=== PATIENT | female | born 1970 | race African-American/Black ===

== ENCOUNTER 2017-12-24 05:47 | Inpatient (IN) ==
[2017-12-23 11:33] LABS: Basophils % 0.2 % (0.0-0.8); Eosinophils # 0.1 10*3/uL (0.0-0.87); Hematocrit 39.1 VOL% (35.7-47.0); Hemoglobin 13.2 GM/DL (12.0-16.0); Immature Granulocytes % 0.4 %; Immature Granulocytes Absolute 0.04 #; Lymphocytes # 2.6 10*3/uL (1.4-4.0); Lymphocytes % 23.8 % (21.3-54.2); Mean Corpuscular HGB Conc 33.8 GM/DL (32-36); Mean Corpuscular Hemoglobin 32 PG (27-34); Mean Corpuscular Volume 96.1 FL (87-102); Mean Platelet Volume 11.2 FL (9.6-12.0); Monocytes # 0.6 10*3/uL (0.11-0.8); Monocytes % 5.5 % (1.7-12.7); Neutrophils # 7.5 10*3/uL (1.4-7.4); Neutrophils % 69.1 % (38.7-73.9); Platelet Count 267 T/CUMM (130-400); Red Blood Count 4.07 MC/CUMM (3.8-5.5); White Blood Count 10.8 T/CUMM (4-12)
[2017-12-23 11:42] LABS: PT Patient Result 10.4 SECS
[2017-12-23 12:49] LABS: Calcium 9.4 MG/DL (8.5-10.1)
[2017-12-23 12:50] LABS: Albumin 3.9 G/DL (3.4-5.0); Bilirubin,Total 0.7 MG/DL (0.2-1.0); Osmolality,Calculated 268.8 MOS/KG (273-304); Potassium 3.6 MMOL/L (3.5-5.1); Total Protein 7.6 G/DL (6.4-8.3)
[2017-12-24] MEDS ORDERED: ceFAZolin 2,000 MG in PREMIX 1 EACH IV ONE (06:30)
[2017-12-24] MEDS ORDERED: FAMOTIDINE 20 MG TABLET PO ONE (06:53)
[2017-12-24] MEDS ORDERED: DIAZEPAM 5 MG TABLET PO ONE (06:53)
[2017-12-24] MEDS ORDERED: LIDOCAINE 1%/EPI INJ 20 ML VIAL ONE (08:43)
[2017-12-24] MEDS ORDERED: TISSUE ADHESIVE 1 EACH APPLICATOR TOP ONE (08:43)
[2017-12-24] MEDS ORDERED: FAMOTIDINE 20 MG TABLET ONE (08:49)
[2017-12-24] MEDS ORDERED: DIAZEPAM 5 MG TABLET ONE (08:49)
[2017-12-24] MEDS ORDERED: LACTATED RINGERS 1,000 ML IV SCH (09:00)
[2017-12-24] MEDS ORDERED: ISOSULFAN BLUE 5 ML VIAL SUBCUT ONE (09:13)
[2017-12-24] MEDS ORDERED: ONDANSETRON 4 MG/2 ML VIAL IV PRN (11:42)
[2017-12-24] MEDS ORDERED: ACETAMINOPHEN 325 MG TABLET PO PRN (11:42)
[2017-12-24] MEDS ORDERED: HYDROmorphone 2 MG/1 ML VIAL IV PRN (11:42)
[2017-12-24] MEDS ORDERED: PSEUDOEPHEDRINE PO PRN (11:50)
[2017-12-24] MEDS ORDERED: GUAIFENESIN PO PRN (11:50)
[2017-12-24] MEDS ORDERED: SEVOFLURANE 1 UNIT/15 MINUTE INH ONE (12:02)
[2017-12-24] MEDS ORDERED: fentaNYL 100 MCG/2 ML VIAL ONE (12:02)
[2017-12-24] MEDS ORDERED: PROPOFOL 200 MG/20 ML VIAL IV ONE (12:02)
[2017-12-24] MEDS ORDERED: KETOROLAC 30 MG/1 ML VIAL ONE (12:03)
[2017-12-24] MEDS ORDERED: ONDANSETRON 4 MG/2 ML VIAL ONE (12:03)
[2017-12-24] MEDS ORDERED: LACTATED RINGERS 1,000 ML IV ONE (12:03)
[2017-12-24] MEDS ORDERED: SUCCINYLCHOLINE 200 MG/10 ML VIAL ONE (12:03)
[2017-12-24] MEDS ORDERED: DEXAMETHASONE 10 MG/1 ML VIAL ONE (12:03)
[2017-12-24] MEDS ORDERED: MIDAZOLAM 2 MG/2 ML VIAL ONE (12:03)
[2017-12-24] MEDS ORDERED: ROCURONIUM 100 MG/10 ML VIAL IV ONE (12:03)
[2017-12-24] MEDS: SODIUM CHLORIDE 0.45% 1,000 ML IV SCH (14:57)
[2017-12-24] MEDS: KETOROLAC 15 MG/1 ML VIAL IV SCH ×2 (14:57→21:36)
[2017-12-24 16:53] LABS: Hematocrit 37.9 VOL% (35.7-47.0); Hemoglobin 12.2 GM/DL (12.0-16.0)
[2017-12-24] MEDS ORDERED: ZALEPLON 5 MG CAPSULE PO PRN (17:31)
[2017-12-24] MEDS: ceFAZolin 2,000 MG in SYRINGE 1 EACH IV SCH (17:59)
[2017-12-24] MEDS: FERROUS SULFATE 325 MG TABLET PO SCH (21:36)
[2017-12-25] MEDS: SODIUM CHLORIDE 0.45% 1,000 ML IV SCH ×2 (02:22→13:31)
[2017-12-25] MEDS: ceFAZolin 2,000 MG in SYRINGE 1 EACH IV SCH (02:30)
[2017-12-25 06:07] LABS: Basophils % 0.1 % (0.0-0.8); Hematocrit 35.8 VOL% (35.7-47.0); Hemoglobin 11.9 GM/DL (12.0-16.0); Immature Granulocytes Absolute 0.14 #; Lymphocytes # 1.7 10*3/uL (1.4-4.0); Lymphocytes % 11.8 % (21.3-54.2); Mean Corpuscular HGB Conc 33.2 GM/DL (32-36); Mean Corpuscular Hemoglobin 32 PG (27-34); Mean Corpuscular Volume 96.8 FL (87-102); Mean Platelet Volume 12.1 FL (9.6-12.0); Monocytes # 0.7 10*3/uL (0.11-0.8); Monocytes % 4.6 % (1.7-12.7); Neutrophils # 12.1 10*3/uL (1.4-7.4); Neutrophils % 82.5 % (38.7-73.9); Platelet Count 217 T/CUMM (130-400); Red Cell Distribution Width 12.9 % (9.3-17.3); White Blood Count 14.6 T/CUMM (4-12)
[2017-12-25 06:16] LABS: Calcium 8.9 MG/DL (8.5-10.1); Osmolality,Calculated 278.4 MOS/KG (273-304); Potassium 3.5 MMOL/L (3.5-5.1)
[2017-12-25] MEDS: KETOROLAC 15 MG/1 ML VIAL IV SCH ×2 (08:27→13:30)
[2017-12-25] MEDS ORDERED: hydroCHLOROthiazide 12.5 MG CAPSULE PO SCH (09:00)
[2017-12-25] MEDS ORDERED: PANTOPRAZOLE 40 MG TABLET PO SCH (09:00)
[2017-12-25] MEDS: FERROUS SULFATE 325 MG TABLET PO SCH (09:41)
[2017-12-25 11:33] VITALS: BP 121/75
[2017-12-25] MEDS ORDERED: ENOXAPARIN 40 MG/0.4 ML SYRINGE SUBCUT SCH (21:00)
[2017-12-27] MEDS ORDERED: ERGOCALCIFEROL 50,000 UNIT CAPSULE PO SCH (09:00)
== END 2017-12-25 13:05 | disposition home health service (06) | DRG 363 ==
LOC: N.OR 05:47 → N.SDSINP 05:48 → N.3E 11:42
PROVIDERS: ADMIT Specialist; ATTEND Specialist